=== PATIENT | female | born 1955 | race Caucasian/White ===

== ENCOUNTER 2017-09-02 08:22 | Outpatient (CLI) | payer OTHER ==
[~2017-09-02] VITALS: Ht 157.5 cm; Wt 84.0 kg
[2017-09-02] MEDS ORDERED: MULT-1029 PO (08:34)
[2017-09-02] MEDS ORDERED: NF-ESOM40C PO (08:34)
[2017-09-02] MEDS ORDERED: LISI2.5T PO (08:34)
[2017-09-02] MEDS ORDERED: NAPR220T66 PO (08:34)
[2017-09-02] MEDS ORDERED: MAGN250T13 PO (08:34)
[2017-09-02] MEDS ORDERED: POTA99TA21 PO (08:34)
[2017-09-02 08:44] VITALS: BP 131/95
[2017-09-02 09:44] LABS: BASOPHILS % (AUTO) 1 % (0-10); EOSINOPHILS # (AUTO) 0.5 10^3/uL (0.0-0.3); EOSINOPHILS % (AUTO) 9 % (0-10); LYMPHOCYTES % (AUTO) 32 % (12-44); MEAN CORPUSCULAR HEMOGLOBIN 29 PG (25-34); MEAN CORPUSCULAR HGB CONC 33 G/DL (32-36); MEAN CORPUSCULAR VOLUME 87 FL (80-99); MEAN PLATELET VOLUME 11.7 FL (7.4-10.4); MONOCYTES # (AUTO) 0.5 X 10^3 (0.0-1.0); MONOCYTES % (AUTO) 9 % (0-12); NEUTROPHILS % (AUTO) 49 % (42-75); PLATELET COUNT 228 10^3/uL (130-400); RED BLOOD COUNT 4.67 10^6/uL (4.35-5.85); RED CELL DISTRIBUTION WIDTH 13.8 % (10.0-14.5); WHITE BLOOD COUNT 6.1 10^3/uL (4.3-11.0)
== END 2017-09-02 10:32 | disposition home or self-care (01) ==
LOC: PREOP 08:22
PROVIDERS: ATTEND Obstetrics & Gynecology
DX: Z01.812 Encounter for preprocedural laboratory examination (principal); N81.10 Cystocele, unspecified
CPT/HCPCS: 36415; 85025; 86850; 86900; 86901; 87081

== ENCOUNTER 2017-09-12 06:00 | Day surgery (SDC) | payer OTHER ==
[~2017-09-12] VITALS: Ht 157.5 cm; Wt 84.0 kg
[~2017-09-12 06:00] MED LIST: LISI2.5T PO; MAGN250T13 PO; MULT-1029 PO; NAPR220T66 PO; NF-ESOM40C PO; POTA99TA21 PO
[2017-09-12] MEDS ORDERED: ceFAZolin 2 GM/50 ML NS 50 ML ONE (06:16)
[2017-09-12] MEDS ORDERED: metroNIDAZOLE 500MG/100ML IVPB 100 ML ONE (06:16)
[2017-09-12] MEDS: LACTATED RINGERS 1,000 ML IV PRN ×2 (06:30→08:15)
[2017-09-12] MEDS ORDERED: BUP/EPI 0.5% 1:200,000 (MARCAINE) 10ML VIAL IJ ONE (06:53)
[2017-09-12 06:56] VITALS: BP 118/83
[2017-09-12] MEDS ORDERED: ceFAZolin 2 GM/NS 50 ML IV ONE (07:00)
[2017-09-12] MEDS ORDERED: metroNIDAZOLE 500 MG/100 ML IVPB (PRE-MIX) IV ONE (07:00)
--- NOTE | 2017-09-12 07:12 | Progress Note-Pre Operative ---
Pre-Operative Progress Note H&P Reviewed The H&P was reviewed, patient examined and no changes noted. Date Seen by Provider: Sep 12, 2017 Time Seen by Provider: 07:00 Date H&P Reviewed: Sep 12, 2017 Time H&P Reviewed: 07:00 Pre-Operative Diagnosis: POP, Cystocele ZAFAR NAIR DO Sep 12, 2017 7:12 am
[2017-09-12] MEDS ORDERED: VASOPRESSIN INJECTION 20 UNIT/ML VIAL ONE (08:37)
[2017-09-12] MEDS ORDERED: ESTROGENS CONJ. CREAM 30 GM (PREMARIN) TUBE ONE (08:37)
[2017-09-12] MEDS ORDERED: NS (IVPB) 100 ML ONE (08:38)
[2017-09-12] MEDS ORDERED: morphine INJ 10 MG/ML 1ML (SYR OR VIAL) ONE (09:02)
[2017-09-12] MEDS ORDERED: KETOROLAC 30 MG/ML VIAL ONE (09:02)
[2017-09-12] MEDS ORDERED: ONDANSETRON 4 MG/2 ML (SDV) Z0FRAN IVP PRN (09:30)
[2017-09-12] MEDS ORDERED: HYDROmorphone (DILAUDID) 2 MG/ML VIAL IVP PRN (09:30)
[2017-09-12] MEDS ORDERED: MEPERIDINE (DEMEROL) INJ 50 MG/ML IVP PRN (09:30)
[2017-09-12] MEDS ORDERED: SIMETHICONE 80 MG (MYLICON) CHEW PO PRN (09:45)
[2017-09-12] MEDS ORDERED: CHLORASEPTIC LOZENGE MM PRN (09:45)
[2017-09-12] MEDS ORDERED: DOCUSATE SODIUM 100 MG (COLACE) CAP PO PRN (09:45)
[2017-09-12] MEDS ORDERED: ANTACID SUSP 30 ML UDC (MYLANTA) PO PRN (09:45)
[2017-09-12] MEDS ORDERED: HYDROcodone/APAP 7.5 MG/325 MG (LORTAB, LORCET PLUS) TABLET PO PRN (09:45)
[2017-09-12] MEDS ORDERED: ONDANSETRON 4 MG/2 ML (SDV) Z0FRAN IV PRN (09:45)
[2017-09-12] MEDS ORDERED: ZOLPIDEM 5 MG (AMBIEN) TAB PO PRN (09:45)
[2017-09-12] MEDS: KETOROLAC 30 MG/ML VIAL IV PRN ×2 (09:47→15:38)
[2017-09-12] MEDS: morphine INJ 10 MG/ML 1ML (SYR OR VIAL) IVP PRN ×2 (09:50→09:51)
[2017-09-12] MEDS: LACTATED RINGERS 1,000 ML IV SCH ×3 (09:51→22:02)
[2017-09-12 10:30] VITALS: BP 145/87
[2017-09-12] MEDS ORDERED: SIME80TA16 PO (10:33)
[2017-09-12] MEDS ORDERED: DOCU100C37 PO (10:33)
[2017-09-12] MEDS ORDERED: HYDR-3816 PO (10:33)
[2017-09-12] MEDS ORDERED: IBUP-1773 PO (10:33)
--- NOTE | 2017-09-12 10:34 | Discharge Inst-Women's Service ---
Discharge Inst-Women's Serv Depart Medication/Instructions New, Converted or Re-Newed RX: RX on Chart Consults/Follow Up Additional Follow Up: Yes Orders/Referrals Dr. Alas in 7-10 and in 8 weeks Activity Activity: Activity as Tolerated Driving Instructions: No Driving for 1 Week NO SMOKING: NO SMOKING Nothing Inside Vagina: No Douching, No [place], No Tampons Diet Discharge Diet: No Restrictions Symptoms to Report to : Bleeding Excessive, Pain Increased, Fever Over 101 Degrees F, Vaginal Bleeding Increase, Questions/Concerns For Any Problems or Questions: Contact Your Physician Skin/Wound Care Infection Signs and Symptoms: Increased Redness, Foul Odor of Wound, Increased Drainage, Skin Itchy or Has a Rash, Increased Swelling, Temperature Above 101 F Operative Area Clean and Dry: Keep Incision Clean/Dry, You May Remove Bandage Stitches/Barrera/Dermabond: Dermabond, Care of Stitches Bathing Instructions: ZAFAR Hilliard DO Sep 12, 2017 10:34 am
[2017-09-12 12:25] VITALS: BP 149/85
--- NOTE | 2017-09-12 14:22 | OPERATIVE REPORT ---
DATE OF SERVICE: PREOPERATIVE DIAGNOSIS: 1. A 61-year-old female with pelvic organ prolapse. 2. Grade III cystocele. POSTOPERATIVE DIAGNOSIS: 1. A 61-year-old female with pelvic organ prolapse. 2. Grade III cystocele. PROCEDURE: Robotic assisted total laparoscopic hysterectomy with bilateral salpingo-oophorectomy and anterior colporrhaphy. SURGEON: Dr. Juni Nair. ANESTHESIA: General endotracheal. ESTIMATED BLOOD LOSS: Minimal. URINE OUTPUT: 50 mL clear at the end of the procedure. FLUIDS: 1300 mL of lactated Ringer's solution. FINDINGS: A normal appearing uterus, bilateral fallopian tubes with evidence of previous tubal ligation, a normal appearing left ovary, the right ovary does have a significant 1 x 1 cm simple appearing cyst but otherwise appears grossly normal. Grossly normal appearing uterus, cervix and vaginal mucosa, age appropriate. SPECIMEN SENT: Uterus, cervix, bilateral fallopian tubes and ovaries. INDICATIONS FOR PROCEDURE: This 61-year-old female was a consultation to my office for pelvic organ prolapse. She was extensively counseled about what this means. She was having discomfort with it and having some urinary incontinence issues as well, mainly stress incontinence. Upon evaluating the patient, she was found to have significant prolapse of the cervix beyond the vaginal introitus as well as a grade III cystocele that was noted in the office. I discussed with the patient pessary placement first; however, after discussion with her and the maintenance involved with this, she was asking for other options including more definitive options. I discussed with the patient hysterectomy. Due to her age, she was requesting removal of her ovaries, which I was agreeable to do, especially since on ultrasound, there was an ovarian cyst seen. So we decided to remove ovaries, fallopian tubes as well at the same time of the hysterectomy. I discussed with the patient how sometimes hysterectomy can fix the cystocele; however, she may need an anterior colporrhaphy. I discussed this procedure with the patient in detail. After everything was discussed with the patient including the risk of bleeding, infection damaging any surrounding structures including but not limited to bowel, bladder, ureter kidneys, risk for postoperative hematoma formation, postoperative thromboembolic events, risk from anesthesia, need for blood transfusion and we discussed even subsequent procedures that might be needed if anything should occur during surgery unintended or complication bull. After everything was discussed with the patient, consent was obtained and the patient was taken to the operating room. REPORT IN DETAIL: Once in the operating room, general anesthesia was found to be adequate. She was placed in dorsal lithotomy position, prepped and draped in normal sterile fashion. Gant catheter was placed in sterile technique. I then evaluated the uterus of which is not enlarged, freely mobile on bimanual examination. A weighted speculum inserted to the patient's vagina and the anterior lip of the cervix is grasped using a single tooth tenaculum. An 0 Vicryl suture was placed in the anterior lip and the tenaculum was removed. I then sounded the uterine cavity and the depth was found to be 8 cm. I then selected an 8 cm Katharine uterine manipulator tip and 3 cm colpotomy ring and placed the Katharine uterine manipulator within the uterus and deploying the balloon and securing the colpotomy ring around the vaginal fornix. I then performed a change of gloves and removed all the instruments from the patient's vagina. After my change of gloves was performed, I turned my attention to the abdomen where infraumbilically infiltrate this area using 0.25 percent Marcaine to make an 8 mm incision and direct a Veress needle through this incision until intraperitoneal placement was confirmed with a saline drop test, after which I tried to insufflate pressures maintained at 15 to 16 mmHg, so unable to insufflate, I end up placing the Veress needle in the left upper quadrant just subcostal in the mid costal line. There is an OG tube in place and therefore once I am intraperitoneal, I am able to confirm this using saline drop test. I proceed with insufflation of CO2 gas. An opening pressure of 5 mmHg was done. I proceed to maximum pressure of 15 mmHg, at which point I removed the Veress needle and I introduced an 8 mm blunt DA Lauri camera trocar through the infraumbilical incision site. Once this was in place, I am able to confirm intrauterine placement using the da Lauri laparoscope. The patient was placed in steep Trendelenburg. I am able to see all the necessary anatomy to proceed with the procedure. A brief scan of the upper abdominal anatomy appears grossly normal. I then placed lateral trocars at both 8 mm. They were approximately 8 cm lateral to my infraumbilical trocar. The skin is infiltrated using 0.25% Marcaine, 8 mm incisions are made and the trocars were directed under direct visualization of the laparoscope and trocar placement was confirmed in the similar fashion. Once I have my three trocar sites in place, I bring in the da Lauri robot and dock it in the appropriate fashion. I placed the vessel sealer in the left hand and monopolar shania in the right hand, performed the following dissection bilaterally. I grasped the infundibulopelvic ligament using the vessel sealer and bipolar cauterize, seal and transect it using the vessel sealer. I then grasped the round ligament using the vessel sealer in similar fashion, cauterized and transected. I then grasped the entire broad ligament bipolar cauterize and transect this using the vessel sealer down to the level of the lower uterine segment at which point I the anterior and posterior leaflets of the broad ligament. The anterior leaflet was dissected down to the anterior vaginal fornix. The posterior leaf was taken down to the posterior vaginal fornix. This allows me to skeletonize the uterine vessels laterally. I bipolar cauterized them and transect them using the vessel sealer. I then performed a colpotomy at 12 o'clock position and take this circumferentially around the vaginal fornix using the monopolar shania, amputating the cervix away from the vagina. The entire specimen was then removed through the vagina. I then proceeded with closing the vaginal cuff using 2-0 Vicryl suture in a [id number] fashion, colposuspending them to the uterosacral ligaments laterally. Once these were both in place. I then closed the remainder of the vaginal cuff using #2-0 V-Loc. There is no active bleeding noted from any my dissection planes. I then undocked the da Lauri robot and assure that all needles were removed at that point as well. I then copiously irrigated the pelvis using traditional laparoscopic instruments and a laparoscopic suction materials scientist. Once again, no active bleeding was noted from any of the dissection planes. I placed FloSeal hemostatic agent over my point of dissection and had the patient taken out of steep Trendelenburg. The lateral trocars were then removed under direct visualization of the laparoscope. The infraumbilical trocar was left in place to introduce 10 mL of 0.25% Marcaine and to release the remainder of the insufflation. This trocar was then removed and the skin was then closed using 4-0 Monocryl in interrupted subcuticular stitches. Dermabond was applied to the incision and Band-Aids were placed over this. I then take my attention to the vagina once more, where there is still a significant cystocele. I placed a weighted speculum into the patient's vagina and grasped the proximal margin of the cystocele using an Allis clamp. I infiltrate the vaginal mucosa using vasopressin a concentration of 10 units in 50 mL of normal saline. I infiltrate the submucosa both for hydrodissection and hemostasis during my dissection. Once this is done along all the extent of the cystocele, I make an incision at the proximal margin of the cystocele using the knife down to the submucosa. I then used the Metzenbaum scissors to dissect and undermine the tissue down the midline of the cystocele. This is then incised using the Metzenbaum scissors. I then grasped the lateral margins of this incision using a T-clamp and dissect off the vesicovaginal fascia bluntly. This allows me to grasp it with suture and plicate it back together. I do this using 0 Vicryl suture in interrupted fashion, plicating and reducing the cystocele this way. Once this is done there is excess vaginal mucosa which I trimmed using the Metzenbaum scissors. I then reapproximate the vaginal mucosal incision using 3-0 Vicryl suture in running locked fashion. There is no active bleeding noted from any of the dissection planes after this was done. I then packed the vagina using vaginal packing soaked in Premarin cream. Gant catheter was left in place. The patient tolerated the procedure well and was taken to recovery area in stable condition. Lap and sponge counts were correct at the end of procedure. Instrument count was correct as well. Two grams of Ancef, 500 mg of Flagyl were given preoperatively for infection prophylaxis. Job ID: [id number] DocumentID: [id number] Dictated Date: 09/12/2017 09:58:19 Chief Controller Station Date: 09/12/2017 14:22:20 Dictated By: JUNI NAIR DO
[2017-09-12 15:20] VITALS: BP 129/72
[2017-09-12] MEDS ORDERED: INFLUENZA TRIvalent 2017-2018 0.5 ML/45 MCG SYR IM ONE (17:00)
[2017-09-12 20:30] VITALS: BP 122/80
[2017-09-13 00:30] VITALS: BP 116/71
[2017-09-13] MEDS ORDERED: IBUPROFEN 600 MG (MOTRIN) TAB PO PRN (02:30)
[2017-09-13 04:30] VITALS: BP 132/79
[2017-09-13 08:15] VITALS: BP 142/80
[2017-09-13] MEDS ORDERED: INFLUENZA TRIvalent 2017-2018 0.5 ML/45 MCG SYR IM ONE (08:18)
--- NOTE | 2017-09-13 09:13 | Anesthesia-General Post-Op ---
General Patient Condition Mental Status/LOC: Same as Preop Cardiovascular: Satisfactory Nausea/Vomiting: Absent Respiratory: Satisfactory Pain: Controlled Complications: Absent Post Op Complications Complications None Follow Up Care/Instructions Patient Instructions None needed. Anesthesia/Patient Condition Patient Condition Patient is doing well, no complaints, stable vital signs, no apparent adverse anesthesia problems. No complications reported per nursing. ULISSES GATICA CRNA Sep 13, 2017 09:13
[2017-09-13 11:50] VITALS: BP 142/80
== END 2017-09-13 11:50 | disposition home or self-care (01) ==
LOC: SDC 06:00 → WS 10:50 → SDC 09-13 11:50
PROVIDERS: ATTEND Obstetrics & Gynecology
DX: D27.0 Benign neoplasm of right ovary (principal); D27.1 Benign neoplasm of left ovary; N81.3 Complete uterovaginal prolapse; N39.3 Stress incontinence (female) (male); N83.8 Other noninflammatory disorders of ovary, fallopian tube and broad ligament; N72 Inflammatory disease of cervix uteri; Z23 Encounter for immunization; I10 Essential (primary) hypertension; Z79.899 Other long term (current) drug therapy
CPT/HCPCS: 94664